=== PATIENT | male | born 1965 | race Caucasian/White ===

== ENCOUNTER 2017-10-09 15:03 | Emergency (ER) | payer MEDICARE, BC ==
[~2017-10-09] VITALS: Ht 175.3 cm; Wt 77.1 kg
[2017-10-09] MEDS ORDERED: ZANAFLEX4 MG PO (15:22)
[2017-10-09] MEDS ORDERED: TRAZODONE HCL100 MG PO (15:23)
[2017-10-09] MEDS ORDERED: VIIBRYD40 MG PO (15:25)
[2017-10-09] MEDS ORDERED: [UNRECOGNIZED DRUG - CODE] PO (15:25)
[2017-10-09] MEDS ORDERED: OMEPRAZOLE20 M2 PO (15:26)
[2017-10-09] MEDS ORDERED: NUCYNTA75 MG PO (15:26)
[2017-10-09] MEDS ORDERED: NEURONTIN600 MG PO (15:26)
[2017-10-09] MEDS ORDERED: ATIVAN0.5 MG PO (15:27)
[2017-10-09] MEDS ORDERED: REQUIP0.5 MG PO (15:28)
[2017-10-09] MEDS ORDERED: ABILIFY 5 MG TAB5 M1 PO (15:28)
[2017-10-09] MEDS ORDERED: TRILEPTAL600 MG PO ×2 (15:29)
[2017-10-09] MEDS ORDERED: REFRESH TEARS15 ML INTRAOCULR (15:30)
[2017-10-09] MEDS ORDERED: VISINE-A EYE DR15 M1 INTRAOCULR (15:31)
[2017-10-09 16:35] VITALS: BP 140/74
== END 2017-10-09 16:35 | disposition home or self-care (01) ==
LOC: M.ERS 15:03
DX: H53.8 Other visual disturbances (principal); M81.0 Age-related osteoporosis without current pathological fracture; J45.909 Unspecified asthma, uncomplicated; K21.9 Gastro-esophageal reflux disease without esophagitis; F31.9 Bipolar disorder, unspecified; F17.200 Nicotine dependence, unspecified, uncomplicated; Z86.14 Personal history of Methicillin resistant Staphylococcus aureus infection; Z88.8 Allergy status to other drugs, medicaments and biological substances; Z88.6 Allergy status to analgesic agent; Z88.0 Allergy status to penicillin; Z88.5 Allergy status to narcotic agent

== ENCOUNTER 2018-04-23 13:47 | Emergency (ER) | payer MEDICARE, BC ==
[~2018-04-23] VITALS: Ht 175.3 cm; Wt 77.1 kg
[~2018-04-23 13:47] MED LIST: ABILIFY 5 MG TAB5 M1 PO; ATIVAN0.5 MG PO; NEURONTIN600 MG PO; NUCYNTA75 MG PO; OMEPRAZOLE20 M2 PO; REFRESH TEARS15 ML INTRAOCULR; REQUIP0.5 MG PO; TRAZODONE HCL100 MG PO; TRILEPTAL600 MG PO; VIIBRYD40 MG PO; VISINE-A EYE DR15 M1 INTRAOCULR; ZANAFLEX4 MG PO; [UNRECOGNIZED DRUG - CODE] PO
[2018-04-23] MEDS ORDERED: ZPAK PO (14:54)
[2018-04-23] MEDS ORDERED: PROAIR HFA8.5 GM INH (15:02)
[2018-04-23] MEDS ORDERED: DOXYCYCLINE MO100 M1 PO (15:02)
[2018-04-23 15:04] VITALS: BP 130/89
== END 2018-04-23 15:05 | disposition home or self-care (01) ==
LOC: M.ERS 13:47
DX: S09.8XXA Other specified injuries of head, initial encounter (principal); S16.1XXA Strain of muscle, fascia and tendon at neck level, initial encounter; R91.8 Other nonspecific abnormal finding of lung field; J45.909 Unspecified asthma, uncomplicated; K21.9 Gastro-esophageal reflux disease without esophagitis; F31.9 Bipolar disorder, unspecified; F03.90 Unspecified dementia, unspecified severity, without behavioral disturbance, psychotic disturbance, mood disturbance, and anxiety; Z88.0 Allergy status to penicillin; Z88.6 Allergy status to analgesic agent; Z88.8 Allergy status to other drugs, medicaments and biological substances; W00.0XXA Fall on same level due to ice and snow, initial encounter; Y93.89 Activity, other specified; Y92.89 Other specified places as the place of occurrence of the external cause; Y99.8 Other external cause status

== ENCOUNTER 2018-06-11 19:47 | Emergency (ER) | payer MEDICARE, BC ==
[~2018-06-11] VITALS: Ht 177.8 cm; Wt 79.4 kg
[~2018-06-11 19:47] MED LIST changes: +DOXYCYCLINE MO100 M1 PO; +PROAIR HFA8.5 GM INH; +ZPAK PO
[2018-06-11 22:32] LABS: ABSOLUTE LYMPHOCYTES 1.3 thou/uL (0.8-5.3); ABSOLUTE MONOCYTES 0.8 thou/uL (0.0-1.2); ABSOLUTE NEUTROPHILS 5.2 thou/uL (1.6-8.1); BASOPHILS 0.7 %; EOSINOPHILS 0.3 %; HEMATOCRIT 35.1 % (42.0-52.0); HEMOGLOBIN 12.3 gm/dL (14.0-18.0); LYMPHOCYTES 17.5 %; MCH 29.3 pg (26.0-34.0); MCHC 35.1 g/dL (28.0-37.0); MCV 83.6 fL (80.0-100.0); MPV 6.2 fl. (7.2-11.1); NUCLEATED RBCS 0 /100WBC; PLATELET COUNT* 198 thou/uL (150-400); POLYS 70.5 %; RDW-CV 12.7 % (10.5-14.5); WBC 7.4 thou/uL (4.0-11.0)
[2018-06-11 22:43] LABS: INR 1.1; PROTIME 11.4 Seconds (9.20-11.50)
[2018-06-11 22:53] LABS: ALBUMIN 3.7 g/dL (3.4-5.0); CALCIUM 8.2 mg/dL (8.5-10.1); CREATININE 0.9 mg/dL (0.6-1.3); POTASSIUM 4.4 mmol/L (3.5-5.1); TOTAL BILIRUBIN 0.3 mg/dL (<0.1-1.0); TOTAL PROTEIN 6.9 g/dL (6.4-8.2)
[2018-06-11 23:50] LABS: URINE BILIRUBIN NEGATIVE (Negative); URINE BLOOD TRACE (Negative); URINE CLARITY CLEAR; URINE COLOR YELLOW; URINE GLUCOSE-RANDOM NEGATIVE (Negative); URINE KETONES NEGATIVE (Negative); URINE LEUKOCYTES-REFLEX NEGATIVE (Negative); URINE NITRITE-REFLEX NEGATIVE (Negative); URINE PROTEIN NEGATIVE (Negative); URINE SPECIFIC GRAVITY 1.015 (1.005-1.030); URINE UROBILINOGEN 0.2 E.U./dl (0.2-1.0)
[2018-06-12] LABS: AMP/METHAMP Negative (Negative); BARBITURATES Negative (Negative); BENZODIAZEPINES Negative (Negative); COCAINE Negative (Negative); METHADONE Negative (Negative); OPIATES POSITIVE (Negative); PCP Negative (Negative); THC POSITIVE (Negative)
[2018-06-12 01:48] VITALS: BP 143/92
--- NOTE | 2018-06-12 13:10 | EKG ---
[place] [address] ELECTROCARDIOGRAM REPORT Name: MENDOZAFATOUMATA JR Room: [facility]#: [id number] Admission: 06/11/18 Attend Phys: Discharge: 06/12/18 Date of : 69 Report #: [id number] THIS REPORT FOR: //name// [facility] ED Test Date: 2018-06-11 Test Time: 22:17:43 Pat Name: FATOUMATA DONALDSON Department: Room: Gender: M Food Mixer: JOEL : 1965 Requested By: Bonifacio Matthews Order Number: [id number] MD: Jerson Romero Measurements Intervals [place] Rate: 69 P: 47 [place]: 150 QRS: 57 QRSD: 110 T: 53 QT: 385 QTc: 413 Interpretive Statements Sinus rhythm RSR' in V1 or V2, right VCD or RVH No previous ECG available for comparison Electronically Signed On 06-12-2018 13:10:18 CDT by Jerson Romero [email or web address] <ELECTRONICALLY SIGNED> By: Jerson Romero MD, [facility] 06/12/18 1310 2216 16 Jerson Romero MD, FACC /EPI
== END 2018-06-12 01:32 | disposition short-term general hospital (02) ==
LOC: M.ERS 19:47
PROVIDERS: Nurse Practitioner Psychiatric/Mental Health
DX: S01.01XA Laceration without foreign body of scalp, initial encounter (principal); R55 Syncope and collapse; R93.0 Abnormal findings on diagnostic imaging of skull and head, not elsewhere classified; M81.0 Age-related osteoporosis without current pathological fracture; J45.909 Unspecified asthma, uncomplicated; K21.9 Gastro-esophageal reflux disease without esophagitis; F31.9 Bipolar disorder, unspecified; F03.90 Unspecified dementia, unspecified severity, without behavioral disturbance, psychotic disturbance, mood disturbance, and anxiety; Z88.6 Allergy status to analgesic agent; Z88.8 Allergy status to other drugs, medicaments and biological substances; Z88.0 Allergy status to penicillin; W18.39XA Other fall on same level, initial encounter; Y92.89 Other specified places as the place of occurrence of the external cause; Y93.89 Activity, other specified; Y99.8 Other external cause status

== ENCOUNTER 2018-07-06 10:00 | Emergency (ER) | payer MEDICARE, BC ==
[~2018-07-06] VITALS: Ht 175.3 cm; Wt 79.4 kg
[2018-07-06] MEDS ORDERED: OMEPRAZOLE20 M2 PO (10:10)
[2018-07-06] MEDS ORDERED: VIIBRYD40 MG PO (10:10)
[2018-07-06] MEDS ORDERED: B6 (10:11)
[2018-07-06] MEDS ORDERED: NUCYNTA ER100 MG PO (10:12)
[2018-07-06] MEDS ORDERED: ZANAFLEX4 MG PO (10:13)
[2018-07-06 10:24] LABS: HEMOGLOBIN 13.9 gm/dL (14.0-18.0); MCH 29.8 pg (26.0-34.0); MCHC 35.6 g/dL (28.0-37.0); MCV 83.8 fL (80.0-100.0); MPV 6.7 fl. (7.2-11.1); NUCLEATED RBCS 0 /100WBC; PLATELET COUNT* 224 thou/uL (150-400); RBC 4.66 mil/uL (4.50-6.00); RDW-CV 13.8 % (10.5-14.5); WBC 6.4 thou/uL (4.0-11.0)
[2018-07-06 10:44] LABS: ALBUMIN 4.2 g/dL (3.4-5.0); CALCIUM 8.9 mg/dL (8.5-10.1); CREATININE 0.9 mg/dL (0.6-1.3); POTASSIUM 4.2 mmol/L (3.5-5.1); TOTAL BILIRUBIN 0.4 mg/dL (<0.1-1.0); TOTAL PROTEIN 7.8 g/dL (6.4-8.2)
[2018-07-06 11:03] LABS: ABSOLUTE LYMPHOCYTES 0.6 thou/uL (0.8-5.3); ABSOLUTE MONOCYTES 0.6 thou/uL (0.0-1.2); ABSOLUTE NEUTROPHILS 5.2 thou/uL (1.6-8.1); PLATELET ESTIMATE ADEQUATE
[2018-07-06] MEDS ORDERED: PREDNISONE 20 M20 M1 PO (11:46)
[2018-07-06] MEDS ORDERED: VENTOLIN HFA 1818 GM INH (11:46)
[2018-07-06] MEDS ORDERED: ALBUTEROL2.5 MG/3 M INH (11:46)
[2018-07-06 11:53] VITALS: BP 129/85
== END 2018-07-06 11:55 | disposition home or self-care (01) ==
LOC: M.ERS 10:00
PROVIDERS: Family Medicine
DX: J45.901 Unspecified asthma with (acute) exacerbation (principal); K21.9 Gastro-esophageal reflux disease without esophagitis; F31.9 Bipolar disorder, unspecified; Z88.0 Allergy status to penicillin; Z88.6 Allergy status to analgesic agent; Z88.8 Allergy status to other drugs, medicaments and biological substances

== ENCOUNTER 2018-08-30 13:13 | Emergency (ER) | payer MEDICARE, BC ==
[~2018-08-30] VITALS: Ht 175.3 cm; Wt 78.5 kg
[~2018-08-30 13:13] MED LIST changes: +ALBUTEROL2.5 MG/3 M INH; +B6; +NUCYNTA ER100 MG PO; +PREDNISONE 20 M20 M1 PO; +VENTOLIN HFA 1818 GM INH
[2018-08-30 13:49] VITALS: BP 138/80
== END 2018-08-30 13:49 | disposition home or self-care (01) ==
LOC: M.ERS 13:13
DX: M54.2 Cervicalgia (principal); Z76.0 Encounter for issue of repeat prescription; K21.9 Gastro-esophageal reflux disease without esophagitis; J45.909 Unspecified asthma, uncomplicated; M81.0 Age-related osteoporosis without current pathological fracture; F31.9 Bipolar disorder, unspecified; F03.90 Unspecified dementia, unspecified severity, without behavioral disturbance, psychotic disturbance, mood disturbance, and anxiety; Z88.0 Allergy status to penicillin; Z88.6 Allergy status to analgesic agent; Z88.1 Allergy status to other antibiotic agents; Z88.8 Allergy status to other drugs, medicaments and biological substances

== ENCOUNTER 2018-09-21 21:39 | Emergency (ER) | payer MEDICARE, BC ==
[~2018-09-21] VITALS: Ht 175.3 cm; Wt 78.5 kg
[2018-09-21 23:36] VITALS: BP 136/78
== END 2018-09-21 23:36 | disposition home or self-care (01) ==
LOC: M.ERS 21:39
DX: T15.01XA Foreign body in cornea, right eye, initial encounter (principal); W20.8XXA Other cause of strike by thrown, projected or falling object, initial encounter; Y93.89 Activity, other specified; Y92.89 Other specified places as the place of occurrence of the external cause; Y99.8 Other external cause status; J45.909 Unspecified asthma, uncomplicated; K21.9 Gastro-esophageal reflux disease without esophagitis; F31.9 Bipolar disorder, unspecified; F03.90 Unspecified dementia, unspecified severity, without behavioral disturbance, psychotic disturbance, mood disturbance, and anxiety; Z88.0 Allergy status to penicillin; Z88.8 Allergy status to other drugs, medicaments and biological substances

== ENCOUNTER 2018-09-24 19:03 | Emergency (ER) | payer MEDICARE, BC ==
[~2018-09-24] VITALS: Ht 175.3 cm; Wt 78.5 kg
[2018-09-24 19:17] VITALS: BP 121/78
== END 2018-09-24 20:09 | disposition home or self-care (01) ==
LOC: M.ERS 19:03
DX: T15.11XA Foreign body in conjunctival sac, right eye, initial encounter (principal); M81.0 Age-related osteoporosis without current pathological fracture; J45.909 Unspecified asthma, uncomplicated; R00.2 Palpitations; K58.9 Irritable bowel syndrome, unspecified; K21.9 Gastro-esophageal reflux disease without esophagitis; F31.9 Bipolar disorder, unspecified; F03.90 Unspecified dementia, unspecified severity, without behavioral disturbance, psychotic disturbance, mood disturbance, and anxiety; Z88.0 Allergy status to penicillin; Z88.8 Allergy status to other drugs, medicaments and biological substances; Z88.6 Allergy status to analgesic agent; Z91.018 Allergy to other foods; W22.8XXA Striking against or struck by other objects, initial encounter; Y93.89 Activity, other specified; Y92.89 Other specified places as the place of occurrence of the external cause; Y99.8 Other external cause status

== ENCOUNTER 2018-09-26 20:55 | Emergency (ER) | payer MEDICARE, BC ==
[~2018-09-26] VITALS: Ht 175.3 cm; Wt 78.5 kg
[2018-09-26 21:59] VITALS: BP 128/73
== END 2018-09-26 22:00 | disposition home or self-care (01) ==
LOC: M.ERS 20:55
DX: M25.562 Pain in left knee (principal); M81.0 Age-related osteoporosis without current pathological fracture; J45.909 Unspecified asthma, uncomplicated; F31.9 Bipolar disorder, unspecified; F03.90 Unspecified dementia, unspecified severity, without behavioral disturbance, psychotic disturbance, mood disturbance, and anxiety; F10.10 Alcohol abuse, uncomplicated; Z79.899 Other long term (current) drug therapy; Z88.6 Allergy status to analgesic agent; Z88.0 Allergy status to penicillin; Z88.8 Allergy status to other drugs, medicaments and biological substances